=== PATIENT | male | born 1945 | race Caucasian/White ===

== ENCOUNTER 2018-10-12 07:56 | Emergency (ER) | payer MEDICARE, BC ==
[2018-10-12] MEDS ORDERED: Aspirin 81 MG Tab.Chew ONE (08:00)
[2018-10-12] MEDS ORDERED: Aspirin 81 MG Tab.Chew PO ONE (08:01)
[2018-10-12] MEDS ORDERED: Clopidogrel 75 MG Tab PO ONE (08:01)
[2018-10-12] MEDS ORDERED: Heparin Sod,Pork In 0.45% Nacl 25,000 UNIT/500 ML IV.SOLN IV ONE (08:02)
[2018-10-12] MEDS ORDERED: Tenecteplase 50 MG Kit ONE (08:02)
[2018-10-12] MEDS ORDERED: Clopidogrel 75 MG Tab ONE (08:02)
[2018-10-12] MEDS ORDERED: Heparin Sodium 5,000 Units/ML Vial ONE (08:02)
[2018-10-12] MEDS ORDERED: Nitroglycerin 0.4 MG Tab.SL ONE (08:03)
[2018-10-12] MEDS ORDERED: Morphine 2 MG/ML Syringe IVPUSH ONE (08:05)
--- NOTE | 2018-10-12 08:11 | EDM.PDOC ---
ED HPI GENERAL MEDICAL PROBLEM - General Chief Complaint: Chest Pain Stated Complaint: CHEST PAIN Time Seen by Provider: 10/12/18 08:08 Source of Information: Reports: Patient - History of Present Illness INITIAL COMMENTS - FREE TEXT/NARRATIVE: HISTORY AND PHYSICAL: History of present illness: [Patient presents with 1.5 hours of substernal chest pain 8 out of 10 radiating to the left arm no diaphoresis or shortness of breath Fever nausea vomiting chills sweats ] Review of systems: As per history of present illness and below otherwise all systems reviewed and negative. Past medical history: As per history of present illness and as reviewed below otherwise noncontributory. Surgical history: As per history of present illness and as reviewed below otherwise noncontributory. Social history: No reported history of drug or alcohol abuse. Family history: As per history of present illness and as reviewed below otherwise noncontributory. Physical exam: HEENT: Atraumatic, normocephalic, pupils reactive, negative for conjunctival pallor or scleral icterus, mucous membranes moist, throat clear, neck supple, nontender, trachea midline. Lungs: Clear to auscultation, breath sounds equal bilaterally, chest nontender. Heart: S1S2, regular, negative for clicks, rubs, or JVD. Abdomen: Soft, nondistended, nontender. Negative for masses or hepatosplenomegaly. Negative for costovertebral tenderness. Pelvis: Stable nontender. Genitourinary: Deferred. Rectal: Deferred. Extremities: Atraumatic, negative for cords or calf pain. Neurovascular unremarkable. Neuro: Awake, alert, oriented. Cranial nerves II through XII unremarkable. Cerebellum unremarkable. Motor and sensory unremarkable throughout. Exam nonfocal. 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 chest Pain Score (Numeric/FACES): 5 - Related Data Allergies Allergy/AdvReac Type Severity Reaction Status Date / Time No Known Allergies Allergy Verified 10/12/18 08:03 Past Medical History Musculoskeletal History: Reports: Arthritis Neurological History: Reports: Parkinson's - Past Surgical History HEENT Surgical History: Reports: Tonsillectomy Social & Family History - Family History Family Medical History: Noncontributory - Tobacco Use Smoking Status *Q: Never Smoker - Alcohol Use Days Per Week of Alcohol Use: 7 Number of Drinks Per Day: 1 Total Drinks Per Week: 7 - Recreational Drug Use Recreational Drug Use: No ED ROS GENERAL - Review of Systems Review Of Systems: See Below ED EXAM, GENERAL - Physical Exam Exam: See Below Course - Vital Signs Last Recorded V/S: Last Vital Signs Temp 97.8 F 10/12/18 08:00 Pulse 74 10/12/18 08:00 Resp 18 10/12/18 08:00 BP 191/105 H 10/12/18 08:00 Pulse Ox 98 10/12/18 08:00 - Orders/Labs/Meds Orders: Active Orders 24 hr Category Date Time Status EKG 12 Lead [EKG Documentation Completion] [RC] STAT Care 10/12/18 08:02 Ordered CBC WITH AUTO DIFF [HEME] Stat Lab 10/12/18 08:00 Ordered COMPREHENSIVE METABOLIC PN,CMP [CHEM] Stat Lab 10/12/18 08:01 Ordered INR,PT,PROTHROMBIN TIME [COAG] Stat Lab 10/12/18 08:01 Ordered TROPONIN I [CHEM] Stat Lab 10/12/18 08:01 Ordered UA RFX ELIS AND CULT IF INDIC [URIN] Stat Lab 10/12/18 08:01 Ordered Nitroglycerin [Nitrostat] Med 10/12/18 08:02 Ordered 0.4 mg SL Q5M PRN Sodium Chloride 0.9% [Normal Saline] 1,000 ml Med 10/12/18 08:15 Ordered IV STAT Medication Orders Sodium Chloride (Normal Saline) 1,000 mls @ 125 mls/hr IV STAT DAVID Nitroglycerin (Nitrostat) 0.4 mg SL Q5M PRN PRN Reason: Chest Pain Meds: Medications Generic Name Dose Route Start Last Admin Trade Name Freq PRN Reason Stop Dose Admin Sodium Chloride 1,000 mls @ 125 mls/hr 10/12/18 08:15 Normal Saline IV STAT DAVID Nitroglycerin 0.4 mg 10/12/18 08:02 Nitrostat SL Q5M PRN Chest Pain Discontinued Medications Generic Name Dose Route Start Last Admin Trade Name Freq PRN Reason Stop Dose Admin Aspirin 324 mg 10/12/18 08:01 Aspirin PO 10/12/18 08:02 ONETIME ONE Aspirin Confirm 10/12/18 08:00 Aspirin Administered 10/12/18 08:01 Dose 324 mg .ROUTE .STK-MED ONE Clopidogrel Bisulfate 300 mg 10/12/18 08:01 Plavix PO 10/12/18 08:02 ONETIME ONE Clopidogrel Bisulfate Confirm 10/12/18 08:02 Plavix Administered 10/12/18 08:03 Dose 300 mg .ROUTE .STK-MED ONE Heparin Sodium (Porcine) Confirm 10/12/18 08:02 Heparin Sodium Administered 10/12/18 08:03 Dose 5,000 units .ROUTE .STK-MED ONE Heparin Sodium/Sodium Chloride Confirm 10/12/18 08:02 Heparin-1/2ns 25,000 Units/500 Administered 10/12/18 08:03 Dose 25,000 unit in 500 mls @ as directed IV .STK-MED ONE Morphine Sulfate 2 mg 10/12/18 08:05 Morphine IVPUSH 10/12/18 08:06 ONETIME ONE Nitroglycerin Confirm 10/12/18 08:03 Nitrostat Administered 10/12/18 08:04 Dose 0.4 mg .ROUTE .STK-MED ONE Tenecteplase Confirm 10/12/18 08:02 Tnkase Administered 10/12/18 08:03 Dose 50 mg .ROUTE .STK-MED ONE Departure - Departure Time of Disposition: 08:11 Disposition: DC/Tfer to Acute Hospital 02 Condition: Poor Clinical Impression: Acute coronary syndrome - Discharge Information - My Orders Last 24 Hours: My Active Orders 10/12/18 08:00 CBC WITH AUTO DIFF [HEME] Stat 10/12/18 08:01 COMPREHENSIVE METABOLIC PN,CMP [CHEM] Stat INR,PT,PROTHROMBIN TIME [COAG] Stat TROPONIN I [CHEM] Stat UA RFX ELIS AND CULT IF INDIC [URIN] Stat 10/12/18 08:02 EKG 12 Lead [EKG Documentation Completion] [RC] STAT Nitroglycerin [Nitrostat] 0.4 mg SL Q5M PRN 10/12/18 08:15 Sodium Chloride 0.9% [Normal Saline] 1,000 ml IV STAT - Assessment/Plan Last 24 Hours: My Active Orders 10/12/18 08:00 CBC WITH AUTO DIFF [HEME] Stat 10/12/18 08:01 COMPREHENSIVE METABOLIC PN,CMP [CHEM] Stat INR,PT,PROTHROMBIN TIME [COAG] Stat TROPONIN I [CHEM] Stat UA RFX ELIS AND CULT IF INDIC [URIN] Stat 10/12/18 08:02 EKG 12 Lead [EKG Documentation Completion] [RC] STAT Nitroglycerin [Nitrostat] 0.4 mg SL Q5M PRN 10/12/18 08:15 Sodium Chloride 0.9% [Normal Saline] 1,000 ml IV STAT
[2018-10-12] MEDS ORDERED: Sodium Chloride 0.9% 1,000 ML IV SCH (08:15)
[2018-10-12] MEDS: Nitroglycerin 0.4 MG Tab.SL SL PRN ×2 (08:18→08:24)
[2018-10-12] MEDS ORDERED: Heparin Sodium 5,000 Units/ML Vial IVPUSH ONE (08:20)
[2018-10-12] MEDS ORDERED: Metoprolol Tartrate 5 MG/5 ML SDV ONE (08:26)
[2018-10-12] MEDS ORDERED: Metoprolol Tartrate 5 MG/5 ML SDV IVPUSH SCH (08:30)
[2018-10-12 08:36] LABS: CHLORIDE,CL 104 mmol/L (98-107); SODIUM,NA 139 mmol/L (136-148)
[2018-10-12] MEDS ORDERED: Heparin Sod,Pork In 0.45% Nacl 25,000 UNIT/500 ML IV.SOLN IV SCH (09:00)
== END 2018-10-12 08:50 ==
LOC: MW.ED 07:56
DX: I24.9 Acute ischemic heart disease, unspecified (principal); G20 Parkinson's disease
CPT/HCPCS: 36415; 80053; 81003; 84484; 85025; 85610; 93005; 96365; 96374; 96375; 99285; A9270; J1644; J2270; J3490; J7040